=== PATIENT | male | born 1955 | race Caucasian/White ===

== ENCOUNTER → 2017-08-28 | Outpatient (CLI) | payer BC | LOC: FIMAGING 08:50 | PROVIDERS: ATTEND Urology | DX: C61 Malignant neoplasm of prostate (principal); Z96.643 Presence of artificial hip joint, bilateral | CPT/HCPCS: 78306; A9503 ==

== ENCOUNTER → 2017-08-30 | Outpatient (CLI) | payer BC ==
[~2017-08-30] MED LIST: GADOBUTROL 10 ML VIAL IVP ONE
== END ==
LOC: FIMAGING 09:30
PROVIDERS: ATTEND Urology
DX: C61 Malignant neoplasm of prostate (principal); K76.9 Liver disease, unspecified; R59.0 Localized enlarged lymph nodes
CPT/HCPCS: A9585